=== PATIENT | female | born 1975 | race Caucasian/White ===

== ENCOUNTER 2018-07-01 11:04 | Outpatient (CLI) | payer SELFPAY | END 2018-07-01 11:05 | disposition home or self-care (01) | LOC: C.CTH 11:04 | DX: R51 Headache (principal) ==

== ENCOUNTER 2018-07-11 13:28 | Outpatient (CLI) | payer OTHER | END 2018-07-11 13:29 | disposition home or self-care (01) | LOC: C.MAMMO 13:29 | DX: Z12.31 Encounter for screening mammogram for malignant neoplasm of breast (principal) ==